=== PATIENT | female | born 1950 | race Caucasian/White ===

== ENCOUNTER → 2019-03-03 10:28 | Outpatient (CLI) | payer OTHER, SELFPAY ==
--- NOTE | 2019-03-03 | DI.MRI.S_ITS ---
PROCEDURE: MR LUMBAR SPINE WO CON INDICATIONS: Low back pain TECHNIQUE: Noncontrast sagittal T1 spin echo and T2 fast echo, sagittal STIR, axial T1 and T2 fast spin echo through the lumbar spine. In cases with scoliosis, additional coronal T2 fast spin echo may be performed. COMPARISON: None. FINDINGS: Image quality: Excellent. Alignment and Curvature: Mild grade 1 anterolisthesis is seen at the L4-L5 level. No associated pars defects can be seen. Mild levoconvex scoliotic curvature is noted. Bone Marrow: Marrow is of normal overall signal. No acute vertebral body compression fractures. There is a mild anterior wedge deformity seen at L1, with an associated Schmorl's node at the superior endplate of L1. No acute features are seen. Spinal Cord: Conus medullaris terminates at the L1 level. Visualized cord demonstrates normal signal and size. Paraspinous Soft Tissues: No paravertebral masses. Incidental note is made of a retroaortic left renal vein. T12-L1: Normal appearance. L1-L2: Normal appearance. L2-L3: Mild to moderate loss of disc height and disc signal are seen. Mild to moderate disc bulge is seen. There is mild to moderate right-sided and moderate left-sided neural foraminal narrowing. Mild central canal narrowing is seen. L3-L4: The disc height is well-preserved. Loss of disc signal is seen at this level. Moderate generalized disc bulge is seen. Uzxm-gk-ddwjypcy facet hypertrophy is seen. Moderate bilateral neural foraminal narrowing is seen, right worse than left. No significant central canal narrowing is seen. L4-L5: Moderate to severe loss of disc height and disc signal are seen. Moderate disc bulge is seen, which is eccentric to the left. Prominent facet hypertrophy is seen at this level. There is moderate to severe left-sided and at least moderate right-sided neural foraminal narrowing seen. There is a degree of compression seen upon the exiting nerve roots. Moderate to severe central canal narrowing is seen at this level. L5-S1: Moderate loss of disc height is seen. Loss of disc signal is seen. Mild generalized disc bulge is seen. Hmkh-bj-etqxpvus facet hypertrophy is seen. There is moderate bilateral neural foraminal narrowing seen, left worse than right. Mild central canal narrowing is seen. IMPRESSION: Multiple levels of lumbar spine degenerative changes are seen which are most prominent at L4-L5. At this level, there is grade 1 anterolisthesis with moderate to severe bilateral neural foraminal narrowing and associated nerve root impingement. Moderate to severe central canal narrowing is seen. Dictated by: Bassem Ovalles M.D. on 03/03/2019 at 12:03 Approved by: Bassem Ovalles M.D. on 03/03/2019 at 12:08
== END ==
PROVIDERS: Visit Provider Physician Assistant
DX: M54.5 Low back pain (principal); M47.816 Spondylosis without myelopathy or radiculopathy, lumbar region; M47.817 Spondylosis without myelopathy or radiculopathy, lumbosacral region; M48.061 Spinal stenosis, lumbar region without neurogenic claudication; M48.07 Spinal stenosis, lumbosacral region; M43.16 Spondylolisthesis, lumbar region
CPT/HCPCS: 72148

== ENCOUNTER 2022-04-18 11:15 | Outpatient (RCR) | payer MEDICARE, OTHER, SELFPAY ==
--- NOTE | 2022-01-08 11:15 | PT.OIE ---
Current Diagnoses Incomplete uterovaginal prolapse (01/08/22) Personal history of other specified conditions (01/08/22) Past Medical History (Last Updated 07/25/21 @ 21:01 by Brittany Jones) Hearing loss Herpes History of urinary incontinence Melanoma Osteopenia Past Surgical History (Last Updated 07/25/21 @ 21:01 by Brittany Jones) Anesthesia Skin cancer (~2008) Visit Care Team Role Provider Type Bassem Short DO Family Provider Non-Staff Primary Care Provider Specialty: Family Practice Address: [address] [place] [address], [place], [address] Email: Jamin Quevedo MD Attending Provider Physician Referring Provider Specialty: STULL INSTALLER Address: [address] [place] [address], [facility] [address], [place], [address] Email: [email or web address] Physical Therapy Initial Evaluation PT-OP-A Visit Information Start: 01/08/22 09:38 Freq: Status: Active Protocol: Document 01/08/22 10:30 [facility] (Rec: 01/08/22 10:43 [facility] [id number]) Out-Patient Physical Therapy Visit Information Visit Information Visit Type Initial Evaluation Visit Start Time 10:40 Visit Stop Time 11:20 Total Visit Minutes 40 Evaluation Information Evaluation Date 01/08/22 PT-OP-B Current Condition Start: 01/08/22 09:38 Freq: Status: Active Protocol: Document 01/08/22 10:30 [facility] (Rec: 01/08/22 10:57 [facility] [id number]) Current Condition History of Current Condition Onset Date 10 months ago Current Complaints frequent urgency, pelvic pressure and heaviness History of Current Condition Bladder and uterine prolapse, wears depends and has to change them 3 times per day she drinks 4 cups of coffee per day and drinks as much water as much as she can. She knows that everytime she eats sugar she has to strain for bowel movements. SHe has history of gout and indigestion Pt walks 3-5 miles per day, she does yoga and stretches She has a disc bulge at L4 but has osteoporosis so is not eligable for back surgery. She has been able to change her osteoporosis to ostepenia with medication. Pt wakes up at night 2-3 times at night. pt was doing a lot of gardening and lifting heavy dirt when this all started. She is taking vaginal estrogen intermittently but she has to pay out of pocket for it so isn't taking it regularly. Treatment Goals Patient/Caregiver Goals reduce pelvic pain, improve pelvic floor strength Current Functional Impairments (Reported) Functional Limitations- Recreation/ limited in recreational Hobbies activies due to urinary leakage PT-OP-C Subjective Start: 01/08/22 09:38 Freq: Status: Active Protocol: Document 01/08/22 10:30 [facility] (Rec: 01/08/22 10:43 [facility] [id number]) OP-PT Subjective Patient Comments Patient Comments pt has a pessary when in the shower last ber she noticied a prolapse, she notes she has difficulty with deffication as she has a fear of worsening her prolapse. She has to manually push the pessary back up after trying to have a bowel movement. Pt Patient Questionnaires Pelvic Pain and Urgency/Frequency Patient Symptom Scale Pelvic Pain Score 5 PT-OP-I Pelvic Floor Start: 01/08/22 09:38 Freq: Status: Active Protocol: Document 01/08/22 10:30 [facility] (Rec: 01/08/22 11:18 [facility] [id number]) Pelvic Floor Assessment Urine Pelvic Floor Surgery No Urinary Symptoms Urge Sensation,Incomplete Emptying Leakage Size Large Leakage Cause Urge Leaks Per Day 4 Voiding Frequency 1-2 hours Nocturia 2-3 times Urine Pad Type Depends Pelvic Clock Pelvic Clock 12-3 Atrophy Pelvic Clock 3-6 Atrophy Pelvic Clock 6-9 Atrophy Pelvic Clock 9-12 Atrophy Pelvic Clock Other left lateral wall of the levator ani atrophy, this is also the side she experiences hip/SI pain Contraction Ability Voluntary Contraction Weak Voluntary Relaxation Weak Manual Muscle Testing Left 2 Manual Muscle Testing Right 3 Manual Muscle Testing Anterior 2 Manual Muscle Testing Posterior 3 Muscle Endurance (Seconds) 3 Comments Pelvic Floor Comments pt fatigues quickly with contractions and she tends to tighten her upper traps PT-OP-Q Treatments Start: 01/08/22 09:38 Freq: Status: Active Protocol: Document 01/08/22 10:30 [facility] (Rec: 01/08/22 13:39 [facility] [id number]) Therapeutic Exercises Supine Exercises pelvic floor long holds Reps/Minutes pt able to hold for 3-5 seconds, she tends to guard in her upper traps Comments worked on 10 sec relaxation in between contractions PT-OP-T Assessment and Plan Start: 01/08/22 09:38 Freq: Status: Active Protocol: Document 01/08/22 10:30 [facility] (Rec: 01/14/22 10:25 [facility] [id number]) Physical Therapy Assessment Rehab Potential Rehabilitation Potential Excellent Evaluation Complexity Number of Personal Factors/Comorbidities 0 Number of Body Systems Impaired 1-2 Clinical Presentation at Evaluation Stable Impairments Impairments Activity Tolerance,Functional Activities,Pain,Soft Tissue Mobility,Tone Other Impairments urinary incontinence pelvic organ prolapse Goals 3 Impairment Decreased endurance of the pelvic floor and substitution from the upper trapezius when attempting a pelvic floor contraction Short Term Goal (STG) Bruno is able to sustain a pelvic floor contraction x 10 seconds in supine STG Duration 5 weeks Cafeteria Worker Goal (LTG) Godfrey is able to sustain a pelvic floor contraction x 10 seconds in standing to help reduce c/o pelvic pressure LTG Duration 12 weeks 2 Impairment Pelvic floor weakness with MMT of 2/5 for left and anterior owens of the levator ani and 3 /5 right and posterior owens Cafeteria Worker Goal (LTG) Bruno is able to improve strength of the pelvic floor by at least one muscle grade for improved support of the pelvic organs LTG Duration 12 weeks 1 Impairment left sided SI pain rated 5/10 Cafeteria Worker Goal (LTG) with pelvic floor/core strengthening there is improved stabilization for the SI joint and Bruno reports overall reduction in SI pain LTG Duration 12 weeks Assessment Summary Assessment Bella who goes by Rajeshserge is a 71 female referred to PT for pelvic floor strengthening for cystecele and uterine prolapse. Bruno's chief complaints are urinary urgency , pelvic pressure, and heaviness. She wears maxi pads for protection and needs to change them 3 times per day . She does have a history of constipation. Leakage is increased with exercise, urgency, and changing positions. Her c/o pelvic pressure are with her all day but are worse with exertion or straining. Pt has has c/o left sided SI pain and she rates her pain as 5/10. With examination today there is atrophy in all aspects of the levator ani with the left lateral wall being the weakest and most atrophy. She tests 2/5 MMT for the anterior and left lateral owens and 3/5 MMT for the posterior and right owens. Her endurance for pelvic floor contraction is very limited and she tends to guard with her upper traps causing neck pain when attempting to hold a pelvic floor contraction longer than a few seconds. EMG biofeedback will be helpful for her for neuro re-education of the pelvic floor and treatment will focus on building endurance while at the same time isolating the pelvic floor. [facility] ( [facility] is a good candidate for PT Physical Therapy Plan Frequency and Duration Frequency of Treatment 1x/Week Duration of Treatment 12 Plan of Care Start Date 01/08/22 Plan of Care End Date 03/28/22 Therapeutic Interventions Therapeutic Interventions Home Exercise Program,Manual Therapy,Neuromuscular Re- education,Patient/Caregiver Education,Self-Care/Home Management,Soft Tissue Mobilization,Therapeutic Exercises Next Visit Focus/Plan Next Note Type Treatment Note Next Visit Plan Begin EMG biofeedback next visit for neuroawarenss of the pelvic floor and endurance training of the pelvic floor. Instruct pt in urge deference technique next visit
--- NOTE | 2022-01-08 11:15 | PT.OPPOC ---
Physical, Occupational & Speech Therapy At [facility] Current Diagnoses Incomplete uterovaginal prolapse (01/08/22) Personal history of other specified conditions (01/08/22) Visit Care Team Role Provider Type Bassem Short DO Family Provider Non-Staff Primary Care Provider Specialty: Family Practice Address: [address] [place] [address], [place], [address] Email: Jamin Quevedo MD Attending Provider Physician Referring Provider Specialty: PREP MANAGER Address: [address] [place] [address], [address], [place], [address] Email: [email or web address] Plan Of Care PT-OP-T Assessment and Plan Start: 01/08/22 09:38 Freq: Status: Active Protocol: Document 01/08/22 10:30 [facility] (Rec: 01/14/22 10:25 [facility] [id number]) Physical Therapy Assessment Rehab Potential Rehabilitation Potential Excellent Evaluation Complexity Number of Personal Factors/Comorbidities 0 Number of Body Systems Impaired 1-2 Clinical Presentation at Evaluation Stable Impairments Impairments Activity Tolerance,Functional Activities,Pain,Soft Tissue Mobility,Tone Other Impairments urinary incontinence pelvic organ prolapse Goals 3 Impairment Decreased endurance of the pelvic floor and substitution from the upper trapezius when attempting a pelvic floor contraction Short Term Goal (STG) Bruno is able to sustain a pelvic floor contraction x 10 seconds in supine STG Duration 5 weeks Soccer Ball Assembler Goal (LTG) Bruno is able to sustain a pelvic floor contraction x 10 seconds in standing to help reduce c/o pelvic pressure LTG Duration 12 weeks 2 Impairment Pelvic floor weakness with MMT of 2/5 for left and anterior owens of the levator ani and 3 /5 right and posterior owens Soccer Ball Assembler Goal (LTG) Abnerdarby is able to improve strength of the pelvic floor by at least one muscle grade for improved support of the pelvic organs LTG Duration 12 weeks 1 Impairment left sided SI pain rated 5/10 Soccer Ball Assembler Goal (LTG) with pelvic floor/core strengthening there is improved stabilization for the SI joint and Bruno reports overall reduction in SI pain LTG Duration 12 weeks Assessment Summary Assessment Bella who goes by Bruno is a 71 female referred to PT for pelvic floor strengthening for cystocele and uterine prolapse. Bruno's chief complaints are urinary urgency , pelvic pressure, and heaviness. She wears maxi pads for protection and needs to change them 3 times per day . She does have a history of constipation. Leakage is increased with exercise, urgency, and changing positions. Her c/o pelvic pressure are with her all day but are worse with exertion or straining. Pt has has c/o left sided SI pain and she rates her pain as 5/10. With examination today there is atrophy in all aspects of the levator ani with the left lateral wall being the weakest and most atrophy. She tests 2/5 MMT for the anterior and left lateral owens and 3/5 MMT for the posterior and right owens. Her endurance for pelvic floor contraction is very limited and she tends to guard with her upper traps causing neck pain when attempting to hold a pelvic floor contraction longer than a few seconds. EMG biofeedback will be helpful for her for neuro re-education of the pelvic floor and treatment will focus on building endurance while at the same time isolating the pelvic floor. Bella ( Bruno) is a good candidate for PT Physical Therapy Plan Frequency and Duration Frequency of Treatment 1x/Week Duration of Treatment 12 Plan of Care Start Date 01/08/22 Plan of Care End Date 03/28/22 Therapeutic Interventions Therapeutic Interventions Home Exercise Program,Manual Therapy,Neuromuscular Re- education,Patient/Caregiver Education,Self-Care/Home Management,Soft Tissue Mobilization,Therapeutic Exercises Next Visit Focus/Plan Next Note Type Treatment Note Next Visit Plan Begin EMG biofeedback next visit for neuro awareness of the pelvic floor and endurance training of the pelvic floor. Instruct pt in urge deference technique next visit Plan of Care Dates Plan of Care Start Date 01/08/22 Plan of Care End Date 03/28/22 Electronically Signed by: Lillian Barragan, PT 01/14/22 [id number] If you are in agreement with this Plan of Care, please return a signed and dated copy. I have reviewed this Plan of Care and certify that the skilled therapy services above are required to meet the patient?s needs. Physician Signature Date Printed Name and Credentials Clinical Instructor Signature Printed Name and Credentials
--- NOTE | 2022-01-24 15:32 | PT.OTN ---
Current Diagnoses Cystocele, unspecified (01/24/22) Incomplete uterovaginal prolapse (01/24/22) Personal history of other specified conditions (01/24/22) Physical Therapy Treatment Note PT-OP-A Visit Information Start: 01/08/22 09:38 Freq: Status: Active Protocol: Document 01/24/22 14:32 [facility] (Rec: 01/24/22 15:14 [facility] [id number]) Out-Patient Physical Therapy Visit Information Visit Information Visit Type Treatment Note Visit Start Time 14:35 Visit Stop Time 15:20 Total Visit Minutes 45 Visit Number 2 PT-OP-B Current Condition Start: 01/08/22 09:38 Freq: Status: Active Protocol: Document 01/08/22 10:30 [facility] (Rec: 01/08/22 10:57 [facility] [id number]) Current Condition History of Current Condition Onset Date 10 months ago Current Complaints frequent urgency, pelvic pressure and heaviness History of Current Condition Bladder and uterine prolapse, wears depends and has to change them 3 times per day she drinks 4 cups of coffee per day and drinks as much water as much as she can. She knows that everytime she eats sugar she has to strain for bowel movements. SHe has history of gout and indigestion Pt walks 3-5 miles per day, she does yoga and stretches She has a disc bulge at L4 but has osteoporosis so is not eligable for back surgery. She has been able to change her osteoporosis to ostepenia with medication. Pt wakes up at night 2-3 times at night. pt was doing a lot of gardening and lifting heavy dirt when this all started. She is taking vaginal estrogen intermittently but she has to pay out of pocket for it so isn't taking it regularly. Treatment Goals Patient/Caregiver Goals reduce pelvic pain, improve pelvic floor strength Current Functional Impairments (Reported) Functional Limitations- Recreation/ limited in recreational Hobbies activies due to urinary leakage PT-OP-C Subjective Start: 01/08/22 09:38 Freq: Status: Active Protocol: Document 01/24/22 14:32 [facility] (Rec: 01/24/22 15:14 [facility] [id number]) OP-PT Subjective Patient Comments Patient Comments pt notes she has been trying her pelvic floor but notes she is trying it in other positions other than laying down. She did note that she was at her daughters this weekend and wasn't having as much trouble with the urgency symptoms PT-OP-I Pelvic Floor Start: 01/08/22 09:38 Freq: Status: Active Protocol: Document 01/08/22 10:30 [facility] (Rec: 01/08/22 11:18 [facility] [id number]) Pelvic Floor Assessment Urine Pelvic Floor Surgery No Urinary Symptoms Urge Sensation,Incomplete Emptying Leakage Size Large Leakage Cause Urge Leaks Per Day 4 Voiding Frequency 1-2 hours Nocturia 2-3 times Urine Pad Type Depends Pelvic Clock Pelvic Clock 12-3 Atrophy Pelvic Clock 3-6 Atrophy Pelvic Clock 6-9 Atrophy Pelvic Clock 9-12 Atrophy Pelvic Clock Other left lateral wall of the levator ani atrophy, this is also the side she experiences hip/SI pain Contraction Ability Voluntary Contraction Weak Voluntary Relaxation Weak Manual Muscle Testing Left 2 Manual Muscle Testing Right 3 Manual Muscle Testing Anterior 2 Manual Muscle Testing Posterior 3 Muscle Endurance (Seconds) 3 Comments Pelvic Floor Comments pt fatigues quickly with contractions and she tends to tighten her upper traps PT-OP-Q Treatments Start: 01/08/22 09:38 Freq: Status: Active Protocol: Document 01/24/22 14:32 [facility] (Rec: 01/24/22 15:14 [facility] [id number]) Therapeutic Exercises Supine Exercises pelvic floor long holds Side bilateral Reps/Minutes 10 reps holding 10 seconds and relaxing 10 seconds Comments 4.6 and 11.7 max Neuro Re-Education Treatment Other Activities EMG biofeedback Details EMG biofeedback for pelvic floor neuromuscular awareness Comments for pelvic floor neuro re-ed resting tone able to go to baseline Self-Care/Home Management Treatment Education Patient Education Home Exercise Program Other Education pt was instructed in urge deference technique and bladder retraining. Time was spent on reviewing bladder irritants as pt notes she drinks at least 2 cups of coffee daily. PT-OP-T Assessment and Plan Start: 01/08/22 09:38 Freq: Status: Active Protocol: Document 01/24/22 14:32 [facility] (Rec: 01/24/22 15:32 [facility] [id number]) Physical Therapy Assessment Assessment Summary Assessment EMG biofeedback was initiated today for Bruno and she had difficulty sustaining a pelvic floor contraction for more than a few seconds. She is doing better with isolation of her pelvic floor and not using her upper traps to substitute. I added in urge deference technique and she will start working on bladder retraining this week at home Physical Therapy Plan Frequency and Duration Frequency of Treatment 1x/Week Duration of Treatment 12 Plan of Care Start Date 01/08/22 Plan of Care End Date 03/28/22 Therapeutic Interventions Therapeutic Interventions Home Exercise Program,Manual Therapy,Neuromuscular Re- education,Patient/Caregiver Education,Self-Care/Home Management,Soft Tissue Mobilization,Therapeutic Exercises Next Visit Focus/Plan Next Note Type Treatment Note Next Visit Plan continue with EMG biofeedback, review urge deference technique, work on hip strengthening next visit
--- NOTE | 2022-01-31 13:46 | PT.OTN ---
Current Diagnoses Cystocele, unspecified (01/31/22) Incomplete uterovaginal prolapse (01/31/22) Personal history of other specified conditions (01/31/22) Physical Therapy Treatment Note PT-OP-A Visit Information Start: 01/08/22 09:38 Freq: Status: Active Protocol: Document 01/31/22 13:00 [facility] (Rec: 01/31/22 13:38 [facility] [id number]) Out-Patient Physical Therapy Visit Information Visit Information Visit Type Treatment Note Visit Start Time 13:00 Visit Stop Time 13:45 Total Visit Minutes 45 Visit Number 3 PT-OP-C Subjective Start: 01/08/22 09:38 Freq: Status: Active Protocol: Document 01/31/22 13:00 [facility] (Rec: 01/31/22 13:38 [facility] [id number]) OP-PT Subjective Patient Comments Patient Comments pt reports she made a chart for herself and has been good on doing her exercises and has been walking a lot She walked over 9 miles this weekend and she notes she gets better when she moves. She has cut her caffine down to 2 cups and her urgency is decreased. The urge technique is also helpful. PT-OP-I Pelvic Floor Start: 01/08/22 09:38 Freq: Status: Active Protocol: Document 01/31/22 13:38 [facility] (Rec: 01/31/22 13:40 [facility] [id number]) Pelvic Floor Assessment Urine Nocturia 1 xm per night PT-OP-Q Treatments Start: 01/08/22 09:38 Freq: Status: Active Protocol: Document 01/31/22 13:00 [facility] (Rec: 01/31/22 13:38 [facility] [id number]) Therapeutic Exercises Supine Exercises templates for eccentric control and stability Supine Exercise Name EMG biofeedback templates Reps/Minutes x 5 min quick contractions Reps/Minutes x 10 reps pelvic floor relaxed awareness Comments 2.0 uv rest pelvic floor long holds Comments 7.3 and max of 17 uv Sidelying Exercises clam shell Reps/Minutes 2 x 10 reps PT-OP-T Assessment and Plan Start: 01/08/22 09:38 Freq: Status: Active Protocol: Document 01/31/22 13:00 [facility] (Rec: 01/31/22 13:38 [facility] [id number]) Physical Therapy Assessment Rehab Potential Rehabilitation Potential Excellent Evaluation Complexity Number of Personal Factors/Comorbidities 0 Number of Body Systems Impaired 1-2 Clinical Presentation at Evaluation Stable Impairments Impairments Activity Tolerance,Functional Activities,Pain,Soft Tissue Mobility,Tone Other Impairments urinary incontinence pelvic organ prolapse Goals 3 Impairment Decreased endurance of the pelvic floor and substitution from the upper trapezius when attempting a pelvic floor contraction Short Term Goal (STG) Bruno is able to sustain a pelvic floor contraction x 10 seconds in supine STG Duration 5 weeks Jr. Java Developer Goal (LTG) Godfrey is able to sustain a pelvic floor contraction x 10 seconds in standing to help reduce c/o pelvic pressure LTG Duration 12 weeks 2 Impairment Pelvic floor weakness with MMT of 2/5 for left and anterior owens of the levator ani and 3 /5 right and posterior owens Snf Goal (LTG) Bruno is able to improve strength of the pelvic floor by at least one muscle grade for improved support of the pelvic organs LTG Duration 12 weeks 1 Impairment left sided SI pain rated 5/10 Jr. Java Developer Goal (LTG) with pelvic floor/core strengthening there is improved stabilization for the SI joint and Bruno reports overall reduction in SI pain LTG Duration 12 weeks Assessment Summary Assessment No complaints of pelvic pressure and pt notes her symptoms have been reduced, pt was able to increase both her average and max congractions today on EMG biofeedback. I started her with clam shells for lateral hip strengthening and also added in templates for eccentric control and coordination. Physical Therapy Plan Frequency and Duration Frequency of Treatment 1x/Week Duration of Treatment 12 Plan of Care Start Date 01/08/22 Plan of Care End Date 03/28/22 Therapeutic Interventions Therapeutic Interventions Home Exercise Program,Manual Therapy,Neuromuscular Re- education,Patient/Caregiver Education,Self-Care/Home Management,Soft Tissue Mobilization,Therapeutic Exercises Next Visit Focus/Plan Next Note Type Treatment Note Next Visit Plan continue with EMG biofeedback, review urge deference technique, continue work on hip strengthening
--- NOTE | 2022-02-05 13:46 | PT.OTN ---
Current Diagnoses Cystocele, unspecified (02/05/22) Incomplete uterovaginal prolapse (02/05/22) Personal history of other specified conditions (02/05/22) Physical Therapy Treatment Note PT-OP-A Visit Information Start: 01/08/22 09:38 Freq: Status: Active Protocol: Document 02/05/22 13:00 [facility] (Rec: 02/05/22 13:46 [facility] [id number]) Out-Patient Physical Therapy Visit Information Visit Information Visit Type Treatment Note Visit Start Time 13:00 Visit Stop Time 13:45 Total Visit Minutes 45 Visit Number 4 PT-OP-C Subjective Start: 01/08/22 09:38 Freq: Status: Active Protocol: Document 02/05/22 13:00 [facility] (Rec: 02/05/22 13:46 [facility] [id number]) OP-PT Subjective Patient Comments Patient Comments pt saw Dr. Quevedo this am to had her pessary taken out and re put in. Still trying to walk as much as she can. Urinary urgency is worse with 2 cups of coffee. SHe notes she is able to void more now. PT-OP-I Pelvic Floor Start: 01/08/22 09:38 Freq: Status: Active Protocol: Document 01/31/22 13:38 [facility] (Rec: 01/31/22 13:40 [facility] [id number]) Pelvic Floor Assessment Urine Nocturia 1 xm per night PT-OP-Q Treatments Start: 01/08/22 09:38 Freq: Status: Active Protocol: Document 02/05/22 13:00 [facility] (Rec: 02/05/22 13:46 [facility] [id number]) Therapeutic Exercises Supine Exercises quick contractions Reps/Minutes x 10 reps pelvic floor relaxed awareness Comments 2.0 uv rest average, able to rest to baseline intermittently. pelvic floor long holds Reps/Minutes x 10 seconds on 10 seconds off x 10 reps Comments average is 7.1 max 25 Neuro Re-Education Treatment Other Activities EMG biofeedback Details EMG biofeedback for pelvic floor neuromuscular awareness Comments for pelvic floor neuro re-ed resting tone able to go to baseline PT-OP-T Assessment and Plan Start: 01/08/22 09:38 Freq: Status: Active Protocol: Document 02/05/22 13:00 [facility] (Rec: 02/05/22 13:46 [facility] [id number]) Physical Therapy Assessment Goals 3 Impairment Decreased endurance of the pelvic floor and substitution from the upper trapezius when attempting a pelvic floor contraction Short Term Goal (STG) Bruno is able to sustain a pelvic floor contraction x 10 seconds in supine STG Duration 5 weeks Agriculture Scientist Goal (LTG) Godfrey is able to sustain a pelvic floor contraction x 10 seconds in standing to help reduce c/o pelvic pressure LTG Duration 12 weeks 2 Impairment Pelvic floor weakness with MMT of 2/5 for left and anterior owens of the levator ani and 3 /5 right and posterior owens Detention Goal (LTG) Bruno is able to improve strength of the pelvic floor by at least one muscle grade for improved support of the pelvic organs LTG Duration 12 weeks 1 Impairment left sided SI pain rated 5/10 Detention Goal (LTG) with pelvic floor/core strengthening there is improved stabilization for the SI joint and Bruno reports overall reduction in SI pain LTG Duration 12 weeks Assessment Summary Assessment pt continues to show improvements with pelvic floor , when she lays on her left side she can relax her pelvc floor better.. She does have a disc bulge at L3-4 Physical Therapy Plan Frequency and Duration Frequency of Treatment 1x/Week Duration of Treatment 12 Plan of Care Start Date 01/08/22 Plan of Care End Date 03/28/22 Next Visit Focus/Plan Next Note Type Treatment Note Next Visit Plan continue with EMG biofeedback, review urge deference technique, continue work on hip strengthening
--- NOTE | 2022-02-12 16:57 | PT.OTN ---
Current Diagnoses Cystocele, unspecified (02/12/22) Incomplete uterovaginal prolapse (02/12/22) Personal history of other specified conditions (02/12/22) Physical Therapy Treatment Note PT-OP-A Visit Information Start: 01/08/22 09:38 Freq: Status: Active Protocol: Document 02/12/22 11:17 [facility] (Rec: 02/12/22 11:58 [facility] [id number]) Out-Patient Physical Therapy Visit Information Visit Information Visit Type Treatment Note Visit Start Time 11:20 Visit Stop Time 12:00 Total Visit Minutes 40 Visit Number 5 PT-OP-C Subjective Start: 01/08/22 09:38 Freq: Status: Active Protocol: Document 02/12/22 11:17 [facility] (Rec: 02/12/22 11:58 [facility] [id number]) OP-PT Subjective Patient Comments Patient Comments urgency is better, she is feeling better overall and not having the leaking Patient Reported Progress Improving PT-OP-I Pelvic Floor Start: 01/08/22 09:38 Freq: Status: Active Protocol: Document 01/31/22 13:38 [facility] (Rec: 01/31/22 13:40 [facility] [id number]) Pelvic Floor Assessment Urine Nocturia 1 xm per night PT-OP-Q Treatments Start: 01/08/22 09:38 Freq: Status: Active Protocol: Document 02/12/22 11:17 [facility] (Rec: 02/12/22 11:58 [facility] [id number]) Therapeutic Exercises Supine Exercises hip roll outs Equipment Used level 3 theraband Reps/Minutes 2 x 10 quick contractions Reps/Minutes x 10 reps pelvic floor long holds Reps/Minutes x 10 seconds on 10 seconds off x 10 reps Sidelying Exercises sidelying leg Reps/Minutes x 5 reps at a time clam shell Reps/Minutes 2 x 10 reps Comments cues for positioning of the hip PT-OP-T Assessment and Plan Start: 01/08/22 09:38 Freq: Status: Active Protocol: Document 02/12/22 11:17 [facility] (Rec: 02/12/22 11:58 [facility] [id number]) Physical Therapy Assessment Goals 3 Impairment Decreased endurance of the pelvic floor and substitution from the upper trapezius when attempting a pelvic floor contraction Short Term Goal (STG) Bruno is able to sustain a pelvic floor contraction x 10 seconds in supine STG Duration 5 weeks Retirement Goal (LTG) Godfrey is able to sustain a pelvic floor contraction x 10 seconds in standing to help reduce c/o pelvic pressure LTG Duration 12 weeks 2 Impairment Pelvic floor weakness with MMT of 2/5 for left and anterior owens of the levator ani and 3 /5 right and posterior owens Retirement Goal (LTG) Bruno is able to improve strength of the pelvic floor by at least one muscle grade for improved support of the pelvic organs LTG Duration 12 weeks 1 Impairment left sided SI pain rated 5/10 Labor Service Representative Goal (LTG) with pelvic floor/core strengthening there is improved stabilization for the SI joint and Bruno reports overall reduction in SI pain LTG Duration 12 weeks Assessment Summary Assessment pt reports she hasn't had any accidents at all now, she has stopped coffee Physical Therapy Plan Frequency and Duration Frequency of Treatment 1x/Week Duration of Treatment 12 Plan of Care Start Date 01/08/22 Plan of Care End Date 03/28/22 Therapeutic Interventions Therapeutic Interventions Home Exercise Program,Manual Therapy,Neuromuscular Re- education,Patient/Caregiver Education,Self-Care/Home Management,Soft Tissue Mobilization,Therapeutic Exercises Next Visit Focus/Plan Next Note Type Treatment Note Next Visit Plan continue with EMG biofeedback, review urge deference technique, continue work on hip strengthening. Review exercises establised today next visit
--- NOTE | 2022-04-03 14:04 | PT.OTN ---
Current Diagnoses Cystocele, unspecified (04/03/22) Incomplete uterovaginal prolapse (04/03/22) Personal history of other specified conditions (04/03/22) Physical Therapy Treatment Note PT-OP-A Visit Information Start: 01/08/22 09:38 Freq: Status: Active Protocol: Document 04/03/22 12:02 [facility] (Rec: 04/03/22 12:23 [facility] [id number]) Out-Patient Physical Therapy Visit Information Visit Information Visit Type Treatment Note Visit Start Time 12:00 Visit Stop Time 12:45 Total Visit Minutes 45 Visit Number 6 PT-OP-C Subjective Start: 01/08/22 09:38 Freq: Status: Active Protocol: Document 04/03/22 12:02 [facility] (Rec: 04/03/22 12:23 [facility] [id number]) OP-PT Subjective Patient Comments Patient Comments pt notes she is walking a lot and she has days where she does better than others PT-OP-I Pelvic Floor Start: 01/08/22 09:38 Freq: Status: Active Protocol: Document 01/31/22 13:38 [facility] (Rec: 01/31/22 13:40 [facility] [id number]) Pelvic Floor Assessment Urine Nocturia 1 xm per night PT-OP-Q Treatments Start: 01/08/22 09:38 Freq: Status: Active Protocol: Document 04/03/22 12:02 [facility] (Rec: 04/03/22 12:23 [facility] [id number]) Therapeutic Exercises Supine Exercises templates for eccentric control and stability Supine Exercise Name EMG biofeedback templates Reps/Minutes x 5 min quick contractions Reps/Minutes x 10 reps Comments 15.5 uv pelvic floor relaxed awareness Comments 2.0 uv rest average, able to rest to baseline intermittently. pelvic floor long holds Reps/Minutes x 10 seconds on 10 seconds off x 10 reps Comments 7.5 max 26 uv Sidelying Exercises sidelying leg Reps/Minutes x 5 reps at a time clam shell Reps/Minutes 2 x 10 reps Comments cues for positioning of the hip PT-OP-T Assessment and Plan Start: 01/08/22 09:38 Freq: Status: Active Protocol: Document 04/03/22 12:00 [facility] (Rec: 04/03/22 14:04 [facility] [id number]) Physical Therapy Assessment Goals 3 Impairment Decreased endurance of the pelvic floor and substitution from the upper trapezius when attempting a pelvic floor contraction Short Term Goal (STG) Bruno is able to sustain a pelvic floor contraction x 10 seconds in supine good progress, pt able to hold 6-8 seconds in supine STG Duration 5 weeks Annealer Goal (LTG) Godfrey is able to sustain a pelvic floor contraction x 10 seconds in standing to help reduce c/o pelvic pressure no c/o pelvic pressure in standing and able to hold x 5 seconds LTG Duration 12 weeks 2 Impairment Pelvic floor weakness with MMT of 2/5 for left and anterior owens of the levator ani and 3 /5 right and posterior owens Correction Goal (LTG) Bruno is able to improve strength of the pelvic floor by at least one muscle grade for improved support of the pelvic organs good progress LTG Duration 12 weeks 1 Impairment left sided SI pain rated 5/10 Correction Goal (LTG) with pelvic floor/core strengthening there is improved stabilization for the SI joint and Bruno reports overall reduction in SI pain good progress LTG Duration 12 weeks Progress Towards Goals Progress Towards Goals Progressing Toward Goals Progress Comments pt is noting decreased urgency and overall decreased leakage . Still wearing pads for protection. Assessment Summary Assessment Bruno has been having difficulty fitting in her pelvic floor exercises, I worked with her today on trying to incorporate her exercises in a standing position and with sit-stand. She was able to perform pelvic floor exercises in standing and with sit-stand. Endurance is still limited and I advised a couple of times per week to do her exercises laying down working on endurance training. She is feeling that her urgency is lessened now and urinary leakage is not as much. She is still wearing a pad. Pt has one additional visit in PT the end of March to review her HEP and then she will be discharged to a home program Physical Therapy Plan Frequency and Duration Frequency of Treatment 1x/Week Duration of Treatment 4 Plan of Care Start Date 04/03/22 Plan of Care End Date 05/03/22 Therapeutic Interventions Therapeutic Interventions Home Exercise Program,Manual Therapy,Neuromuscular Re- education,Patient/Caregiver Education,Self-Care/Home Management,Soft Tissue Mobilization,Therapeutic Exercises Next Visit Focus/Plan Next Note Type Treatment Note Next Visit Plan review all established exercises next visit, recheck pelvic floor strength and endurance
--- NOTE | 2022-04-03 14:04 | PT.OPPOC ---
Physical, Occupational & Speech Therapy At [facility] Current Diagnoses Cystocele, unspecified (04/03/22) Incomplete uterovaginal prolapse (04/03/22) Personal history of other specified conditions (04/03/22) Visit Care Team Role Provider Type Bassem Short DO Family Provider Non-Staff Primary Care Provider Specialty: Family Practice Address: [address] [place] [address], [place], [address] Email: Jamin Quevedo MD Attending Provider Physician Referring Provider Specialty: ODD TICKET CLERK Address: [address] [place] [address], [address], [address] Email: [email or web address] Plan Of Care PT-OP-T Assessment and Plan Start: 01/08/22 09:38 Freq: Status: Active Protocol: Document 04/03/22 12:00 [facility] (Rec: 04/03/22 14:04 [facility] [id number]) Physical Therapy Assessment Goals 3 Impairment Decreased endurance of the pelvic floor and substitution from the upper trapezius when attempting a pelvic floor contraction Short Term Goal (STG) Bruno is able to sustain a pelvic floor contraction x 10 seconds in supine good progress, pt able to hold 6-8 seconds in supine STG Duration 5 weeks Supervisor Product Inspection Goal (LTG) Bruno is able to sustain a pelvic floor contraction x 10 seconds in standing to help reduce c/o pelvic pressure no c/o pelvic pressure in standing and able to hold x 5 seconds LTG Duration 12 weeks 2 Impairment Pelvic floor weakness with MMT of 2/5 for left and anterior owens of the levator ani and 3 /5 right and posterior owens Usp Goal (LTG) Chinmayo is able to improve strength of the pelvic floor by at least one muscle grade for improved support of the pelvic organs good progress LTG Duration 12 weeks 1 Impairment left sided SI pain rated 5/10 Supervisor Product Inspection Goal (LTG) with pelvic floor/core strengthening there is improved stabilization for the SI joint and Chinmayo reports overall reduction in SI pain good progress LTG Duration 12 weeks Progress Towards Goals Progress Towards Goals Progressing Toward Goals Progress Comments pt is noting decreased urgency and overall decreased leakage . Still wearing pads for protection. Assessment Summary Assessment Bruno has been having difficulty fitting in her pelvic floor exercises, I worked with her today on trying to incorporate her exercises in a standing position and with sit-stand. She was able to perform pelvic floor exercises in standing and with sit-stand. Endurance is still limited and I advised a couple of times per week to do her exercises laying down working on endurance training. She is feeling that her urgency is lessened now and urinary leakage is not as much. She is still wearing a pad. Pt has one additional visit in PT the end of March to review her HEP and then she will be discharged to a home program Physical Therapy Plan Frequency and Duration Frequency of Treatment 1x/Week Duration of Treatment 4 Plan of Care Start Date 04/03/22 Plan of Care End Date 05/03/22 Therapeutic Interventions Therapeutic Interventions Home Exercise Program,Manual Therapy,Neuromuscular Re- education,Patient/Caregiver Education,Self-Care/Home Management,Soft Tissue Mobilization,Therapeutic Exercises Next Visit Focus/Plan Next Note Type Treatment Note Next Visit Plan review all established exercises next visit, recheck pelvic floor strength and endurance Plan of Care Dates Plan of Care Start Date 04/03/22 Plan of Care End Date 05/03/22 Electronically Signed by: Lillian Barragan, PT 04/03/22 9110 If you are in agreement with this Plan of Care, please return a signed and dated copy. I have reviewed this Plan of Care and certify that the skilled therapy services above are required to meet the patient?s needs. Physician Signature Date Printed Name and Credentials Clinical Instructor Signature Printed Name and Credentials
--- NOTE | 2022-04-18 12:04 | PT.OTN ---
Current Diagnoses Cystocele, unspecified (04/18/22) Incomplete uterovaginal prolapse (04/18/22) Personal history of other specified conditions (04/18/22) Physical Therapy Treatment Note PT-OP-A Visit Information Start: 01/08/22 09:38 Freq: Status: Active Protocol: Document 04/18/22 11:18 [facility] (Rec: 04/18/22 11:30 [facility] [id number]) Out-Patient Physical Therapy Visit Information Visit Information Visit Type Treatment Note Visit Start Time 11:18 Visit Stop Time 12:00 Total Visit Minutes 43 Visit Number 7 PT-OP-C Subjective Start: 01/08/22 09:38 Freq: Status: Active Protocol: Document 04/18/22 11:18 [facility] (Rec: 04/18/22 11:30 [facility] [id number]) OP-PT Subjective Patient Comments Patient Comments pt is uping her walking and she hasn't had as many accidents. She still has the urgency. The pessary is working great. SHe is working on standing pelvic floor exercises PT-OP-I Pelvic Floor Start: 01/08/22 09:38 Freq: Status: Active Protocol: Document 04/18/22 11:30 [facility] (Rec: 04/18/22 11:42 [facility] [id number]) Pelvic Floor Assessment Pelvic Clock Pelvic Clock 12-3 Atrophy Pelvic Clock 3-6 Atrophy Pelvic Clock 6-9 Atrophy Pelvic Clock 9-12 Atrophy Pelvic Clock Other no longer is there atrophy of the left lateral wall, it is built back up, no c/o SI pain Contraction Ability Voluntary Contraction Moderate Voluntary Relaxation Moderate Manual Muscle Testing Left 3 Manual Muscle Testing Right 3 Manual Muscle Testing Anterior 3 Manual Muscle Testing Posterior 3 Muscle Endurance (Seconds) 3 PT-OP-Q Treatments Start: 01/08/22 09:38 Freq: Status: Active Protocol: Document 04/18/22 11:42 [facility] (Rec: 04/18/22 12:02 [facility] [id number]) Therapeutic Exercises Supine Exercises templates for eccentric control and stability Supine Exercise Name EMG biofeedback templates Reps/Minutes x 5 min quick contractions Reps/Minutes x 10 reps Comments 15.5 uv pelvic floor long holds Reps/Minutes x 10 seconds on and 10 seconds off Comments 6.0 max 14.3 Manual Therapy Treatment Manual Techniques manual recheck of the pelvic floor muscles and strength Body Location pelvic floor manual recheck Body Position Hooklying Self-Care/Home Management Treatment Education Patient Education Home Exercise Program,Posture Other Education education on reducing pressure downwards onto the pelvic floor PT-OP-T Assessment and Plan Start: 01/08/22 09:38 Freq: Status: Active Protocol: Document 04/18/22 11:42 [facility] (Rec: 04/18/22 12:02 [facility] [id number]) Physical Therapy Assessment Goals 3 Impairment Decreased endurance of the pelvic floor and substitution from the upper trapezius when attempting a pelvic floor contraction Short Term Goal (STG) Bruno is able to sustain a pelvic floor contraction x 10 seconds in supine good progress, pt able to hold 6-8 seconds in supine STG Duration 5 weeks Usp Goal (LTG) Godfrey is able to sustain a pelvic floor contraction x 10 seconds in standing to help reduce c/o pelvic pressure no c/o pelvic pressure in standing and able to hold x 5 seconds LTG Duration 12 weeks 2 Impairment Pelvic floor weakness with MMT of 2/5 for left and anterior owens of the levator ani and 3 /5 right and posterior owens Usp Goal (LTG) Bruno is able to improve strength of the pelvic floor by at least one muscle grade for improved support of the pelvic organs goal met LTG Duration 12 weeks 1 Impairment left sided SI pain rated 5/10 Usp Goal (LTG) with pelvic floor/core strengthening there is improved stabilization for the SI joint and Bruno reports overall reduction in SI pain GOAL MET, any c/o of L SI pain is rare now LTG Duration 12 weeks Assessment Summary Assessment Abner has made great overall strength gains and is now 3/5 MMT for all aspects of her pelvic floor. Her left side is now stronger and she is not complaining of the frequency of SI pain. Her endurance is still difficult to hold for 10 second so she will continue working on this as well as urge deference technique Physical Therapy Plan Discharge Physical Therapy Discharge Reasons Goals Met
== END 2022-05-03 16:11 | disposition home or self-care (01) ==
LOC: PHYS 11:15
PROVIDERS: Family Provider Family Medicine; PCP Family Medicine; Referring Provider Obstetrics & Gynecology; Visit Provider Obstetrics & Gynecology
DX: Z87.898 Personal history of other specified conditions (principal); N81.2 Incomplete uterovaginal prolapse
CPT/HCPCS: 97110; 97112; 97161; 97535